=== PATIENT | female | born 1955 | race Caucasian/White ===

== ENCOUNTER 2018-01-31 09:29 | Emergency (ER) | payer MEDICARE ==
[~2018-01-31] VITALS: Ht 162.6 cm; Wt 60.8 kg
[2018-01-31 09:47] VITALS: BP 165/83
== END 2018-01-31 11:15 | disposition home or self-care (01) ==
LOC: ER 09:33
DX: S40.021A Contusion of right upper arm, initial encounter (principal); S00.83XA Contusion of other part of head, initial encounter; S60.211A Contusion of right wrist, initial encounter; S80.12XA Contusion of left lower leg, initial encounter; E78.5 Hyperlipidemia, unspecified; I10 Essential (primary) hypertension; Z90.710 Acquired absence of both cervix and uterus; Z90.49 Acquired absence of other specified parts of digestive tract; Z88.8 Allergy status to other drugs, medicaments and biological substances; W18.31XA Fall on same level due to stepping on an object, initial encounter; Y93.H2 Activity, gardening and landscaping; Y99.8 Other external cause status; Y92.9 Unspecified place or not applicable
CPT/HCPCS: 70450; 73060; 73110